=== PATIENT | male | born 1980 | race Two or more races ===

== ENCOUNTER → 2017-09-15 | Outpatient (CLI) | payer OTHER ==
[~2017-09-15] MED LIST: CLOM25CA2 PO
[2017-09-15 12:30] LABS: BASOPHILS # (AUTO) 0.03 x10^3/uL (0-0.1); BASOPHILS % (AUTO) 0 % (0-1); EOSINOPHILS # (AUTO) 0.13 x10^3/uL (0-0.4); EOSINOPHILS % (AUTO) 1 % (1-7); LYMPHOCYTES # (AUTO) 1.96 x10^3/uL (1-3.4); LYMPHOCYTES % (AUTO) 19 % (22-44); MD NO; MEAN CORPUSCULAR HGB CONC 33.4 g/dL (33.2-36.2); MEAN CORPUSCULAR VOLUME 92.8 fL (81-97); MEAN PLATELET VOLUME 9.2 fL (7.4-10.4); MONOCYTES # (AUTO) 0.52 x10^3/uL (0.2-0.8); MONOCYTES % (AUTO) 5 % (2-9); NEUTROPHILS # (AUTO) 7.72 x10^3/uL (1.8-6.8); NEUTROPHILS % (AUTO) 75 % (42-75); PLATELET COUNT 281 x10^3/uL (130-400); RED BLOOD COUNT 5.03 x10^6/uL (4.38-5.82); RED CELL DISTRIBUTION WIDTH 13.4 % (9.4-14.8)
[2017-09-15 12:32] LABS: MICROSCOPIC NOT IND
[2017-09-15 12:37] LABS: INTERNATIONAL NORMALIZED RATIO 1.07 (0.93-1.1)
[2017-09-15 12:42] LABS: ANION GAP 8 mmol/L (5-15); CALCIUM 8.7 mg/dL (8.5-10.1); CHLORIDE 108 mmol/L (98-107)
[2017-09-15 12:45] LABS: ALANINE AMINOTRANSFERASE 34 U/L (12-78); ALKALINE PHOSPHATASE 61 U/L (45-117); BILIRUBIN,TOTAL 0.5 mg/dL (0.2-1.0); TOTAL PROTEIN 7.7 g/dL (6.4-8.2)
== END | disposition home or self-care (01) ==
LOC: STAR 11:38
PROVIDERS: ATTEND Urology
DX: Z31.0 Encounter for reversal of previous sterilization (principal)
CPT/HCPCS: 36415; 80053; 81003; 85025; 85610; 85730; 87086

== ENCOUNTER 2017-09-22 05:44 | Day surgery (SDC) | payer OTHER ==
[~2017-09-22] VITALS: Ht 180.3 cm; Wt 81.0 kg
[2017-09-22] MEDS ORDERED: LACTATED RINGERS 1,000 ML IV SCH (06:08)
[2017-09-22 06:10] VITALS: BP 137/90
[2017-09-22] MEDS ORDERED: BUPIVACAINE/PF 0.25% ONE (07:12)
[2017-09-22] MEDS ORDERED: NEOSPORIN OINT, 15GM ONE (07:13)
[2017-09-22] MEDS ORDERED: EPINEPHRINE 1 MG/ML, 1ML ONE (07:13)
[2017-09-22] MEDS ORDERED: MIDAZOLAM 1 MG/ML, 2ML ONE (07:15)
[2017-09-22] MEDS ORDERED: FENTANYL PF 100 MCG/2ML ONE ×2 (07:15→10:18)
[2017-09-22] MEDS ORDERED: SCOPOLAMINE PATCH, 1.5MG PATCH.TD72 TD ONE (07:24)
[2017-09-22] MEDS ORDERED: ONDANSETRON 2MG/ML, 2ML ONE ×2 (07:32)
[2017-09-22] MEDS ORDERED: PROPOFOL 10 MG/ML, 20ML ONE (07:32)
[2017-09-22] MEDS ORDERED: DEXAMETHASONE 4 MG/ML, 1ML ONE (07:32)
[2017-09-22] MEDS ORDERED: ROCURONIUM 10 MG/ML,10ML ONE (07:32)
[2017-09-22] MEDS ORDERED: CEFAZOLIN 1,000 MG ONE (07:32)
[2017-09-22] MEDS ORDERED: BUPIVACAINE/PF-EPI 0.25% 1:200K INFIL ONE (08:04)
[2017-09-22] MEDS ORDERED: PROMETHAZINE 25 MG/ML, 1ML IV PRN (08:30)
[2017-09-22] MEDS ORDERED: ALBUTEROL SULFATE 2.5 MG/3 ML NPPB PRN (08:30)
[2017-09-22] MEDS ORDERED: LABETALOL 5MG/ML, 20ML IV PRN (08:30)
[2017-09-22] MEDS ORDERED: FENTANYL PF 100 MCG/2ML IV PRN (08:30)
[2017-09-22] MEDS ORDERED: LORazepam 2 MG/ML, 1ML IVPush PRN (08:30)
[2017-09-22] MEDS ORDERED: ACETAMINOPHEN 325 MG TABLET PO PRN (08:30)
[2017-09-22] MEDS ORDERED: OXYcodone 5 MG/5 ML ORAL.SOL UDC PO PRN (08:30)
[2017-09-22] MEDS ORDERED: MEPERIDINE/PF 25MG/0.5ML IVPush PRN (08:30)
[2017-09-22] MEDS ORDERED: HYDROmorphone 2 MG/ML, 1ML IV PRN (08:30)
[2017-09-22] MEDS ORDERED: hydrALAzine 20 MG/ML, 1ML IV PRN (08:30)
[2017-09-22] MEDS ORDERED: INDIGO CARMINE 0.8%, 5ML ONE (08:38)
[2017-09-22] MEDS ORDERED: MEPERIDINE/PF 50 MG/ML ONE (11:50)
[2017-09-22] MEDS ORDERED: KETOROLAC 30 MG/1 ML ONE (12:38)
[2017-09-22] MEDS ORDERED: ACETAMINOPHEN 650 MG/20.3 ML UDC ONE (12:48)
[2017-09-22] MEDS ORDERED: OXYcodone 5 MG/5 ML ORAL.SOL UDC ONE (12:48)
[2017-09-22] MEDS ORDERED: KETOROLAC 30 MG/1 ML IVPush PRN (13:00)
== END 2017-09-22 14:15 ==
LOC: OUT 05:44
PROVIDERS: ATTEND Urology
DX: N46.9 Male infertility, unspecified (principal); Z98.52 Vasectomy status
CPT/HCPCS: 55400; 55500; J0171; J0690; J1100; J1885; J2175; J2250; J2405; J2704; J3010; J3490; J7120